=== PATIENT | female | born 1975 ===

== ENCOUNTER → 2023-05-06 | Outpatient (CLI) | payer SELFPAY ==
[2023-05-07 13:13] LABS: Candida species (DNA Probe) Negative (NEGATIVE); G. vaginalis (DNA Probe) Negative (NEGATIVE); T. vaginalis (DNA Probe) Negative (NEGATIVE)
[2023-05-10 08:21] LABS: CHLAMYDIA BY NAA Negative (Negative); GONOCOCCUS BY NAA Negative (Negative); TRICH VAG BY NAA Negative (Negative)
== END ==
LOC: LAB 11:40 → LAB SHORT 11:40
PROVIDERS: Emergency Medicine
DX: R31.9 Hematuria, unspecified (principal); R35.0 Frequency of micturition
CPT/HCPCS: 87077; 87086; 87186; 87480; 87491; 87510; 87591; 87660; 87661